=== PATIENT | male | born 1935 | race Hispanic/Latino ===

== ENCOUNTER 2018-05-22 07:44 | Day surgery (SDC) | payer OTHER ==
[2018-05-19 10:41] LABS: BASOPHILS % (AUTO) 1.2 % (0.0-5.0); EOSINOPHILS % (AUTO) 9.1 % (0.0-8.0); HEMATOCRIT 42.2 % (42-54); LYMPHOCYTES % (AUTO) 19.5 % (21.0-51.0); MEAN CORPUSCULAR HEMOGLOBIN 31.7 pg (27.0-33.0); MEAN CORPUSCULAR HGB CONC 33.4 g/dL (32.0-36.0); MEAN CORPUSCULAR VOLUME 94.7 fL (79-99); MONOCYTES % (AUTO) 13.1 % (3.0-13.0); NEUTROPHILS % (AUTO) 57.1 % (40.0-77.0); NUCLEATED RED BLOOD CELLS 0.1 % (0.0-0.19); PLATELET COUNT (AUTO) 216 K/uL (130-400); RED BLOOD CELL COUNT(AUTO) 4.45 MIL/uL (4.50-6.20); RED CELL DISTRIBUTION WIDTH 13.8 % (11.0-15.5); WHITE BLOOD COUNT (AUTO) 5.7 K/uL (4.8-10.8)
[2018-05-19 10:46] VITALS: BP 129/76
[2018-05-19 10:51] LABS: CREATININE 1.3 mg/dL (0.5-1.5); POTASSIUM 4.6 mmol/L (3.5-5.1)
[2018-05-19 10:54] LABS: INR 1.08 (0.85-1.15); PARTIAL THROMBOPLASTIN TIME 30.2 SEC (26.3-35.5); PROTHROMBIN TIME 11.3 SEC (9.6-11.6)
[~2018-05-22] VITALS: Ht 165.1 cm; Wt 87.2 kg
[2018-05-22] VITALS (12 sets, daily range): BP systolic 113–132; BP diastolic 57–71
[2018-05-22] MEDS: CEFAZOLIN SODIUM 1 GM VIAL IVP SCH ×2 (05:00→10:45)
[2018-05-22] MEDS ORDERED: LACTATED RINGERS 1000ML 1,000 ML IV ONE (08:24)
[2018-05-22] MEDS ORDERED: MIDAZOLAM HCL 1 MG/ML 2ML VIAL ONE (10:39)
[2018-05-22] MEDS ORDERED: DEXAMETHASONE SOD PHOSPHATE 10MG/ML 1ML VIAL ONE (10:39)
[2018-05-22] MEDS ORDERED: ONDANSETRON HCL 4 MG/2 ML VIAL ONE (10:39)
[2018-05-22] MEDS ORDERED: PROPOFOL 10 MG/ML 20ML VIAL IV ONE (10:40)
[2018-05-22] MEDS ORDERED: FENTANYL CITRATE PF 50 MCG/1 ML 2ML VIAL ONE (10:40)
[2018-05-22] MEDS ORDERED: EPHEDRINE SULFATE 50 MG/ML AMPULE ONE (10:52)
[2018-05-22] MEDS ORDERED: BACITRACIN 28.4 GM OINT TP ONE (11:04)
== END 2018-05-22 12:50 | disposition home or self-care (01) ==
LOC: DAH 07:44
PROVIDERS: ATTEND Urology
DX: L72.0 Epidermal cyst (principal); N50.9 Disorder of male genital organs, unspecified; N40.0 Benign prostatic hyperplasia without lower urinary tract symptoms; M19.90 Unspecified osteoarthritis, unspecified site; Z98.890 Other specified postprocedural states; Z82.49 Family history of ischemic heart disease and other diseases of the circulatory system; Z83.3 Family history of diabetes mellitus; Z79.899 Other long term (current) drug therapy; I10 Essential (primary) hypertension; Z79.01 Long term (current) use of anticoagulants
CPT/HCPCS: 36415; 71045; 80048; 85025; 85610; 85730; 88304; A4600; A4649; A4930 ×2; J0690; J1100; J2405; J2704; J3490; J7120; J2250; J3010